=== PATIENT | female | born 1975 | race Caucasian/White ===

== ENCOUNTER 2017-06-27 06:45 | Day surgery (SDC) | payer OTHER ==
[~2017-06-27 06:45] MED LIST: FIORICET 50-321 EACH PO; FLONASE16 GM NS; GILTUSS TR TAB1 EACH PO
== END 2017-06-27 10:15 | disposition home or self-care (01) ==
LOC: AMB-ENDOS 06:45
DX: K29.50 Unspecified chronic gastritis without bleeding (principal); K29.70 Gastritis, unspecified, without bleeding; K20.8 Other esophagitis; K44.9 Diaphragmatic hernia without obstruction or gangrene